=== PATIENT | male | born 1975 | race American Indian/Alaskan Native ===

== ENCOUNTER 2017-12-23 09:18 | Emergency (ER) | payer BC, MEDICAID | END 2017-12-23 10:14 | disposition left against medical advice (07) | LOC: DL.ED 09:18 | DX: Z53.21 Procedure and treatment not carried out due to patient leaving prior to being seen by health care provider (principal) | CPT/HCPCS: L3999 ==

== ENCOUNTER 2020-01-25 12:50 | Emergency (ER) | payer MEDICAID ==
[2020-01-25] MEDS ORDERED: Acetaminophen/HYDROcodone 325-10 MG Tab PO ONE (14:05)
--- NOTE | 2020-01-25 14:06 | EDM.PDOC ---
<Soledad Atkins - Last Filed: 01/25/20 13:54> ED HPI GENERAL MEDICAL PROBLEM - General Chief Complaint: Lower Extremity Injury/Pain Stated Complaint: FELL AND HURT ANKLE Time Seen by Provider: 01/25/20 13:35 Source of Information: Reports: Patient, RN Notes Reviewed History Limitations: Reports: No Limitations - History of Present Illness INITIAL COMMENTS - FREE TEXT/NARRATIVE: Patient presents to ED by private vehicle after tripping and twisting his right ankle. The patient reports 7/10 pain, anterior right ankle. The pain increases with palpation of medial and lateral malleoli, increases with dorsiflexion, plantarflexion, internal and external rotation. The patient denies pain to palpation of the base of the 5th metatarsal. He reports a history of multiple ankle sprains to bilateral ankles. History of a tibia fracture, date unknown. 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 [No Known Home Meds] 01/25/20 [History] Review of Systems - Review of Systems Review Of Systems: Comprehensive ROS is negative, except as noted in HPI. ED EXAM, GENERAL - Physical Exam Exam: See Below Exam Limited By: No Limitations General Appearance: Alert, No Apparent Distress Respiratory/Chest: No Respiratory Distress, Lungs Clear, Normal Breath Sounds, No Accessory Muscle Use, Chest Non-Tender Cardiovascular: Normal Peripheral Pulses, Regular Rate, Rhythm, No Edema, No Gallop, No JVD, No Murmur, No Rub Peripheral Pulses: 2+: Posterior Tibial (L), Posterior Tibial (R), Dorsalis Pedis (L), Dorsalis Pedis (R) Extremities: Normal Capillary Refill, Joint Swelling (right lateral ankle), Limited Range of Motion (secondary to pain, right ankel in all directions), Other (Negative Almeida test) Neurological: Normal Reflexes, No Motor/Sensory Deficits Psychiatric: Normal Affect, Normal Mood Skin Exam: Warm, Dry, Intact, Normal Color, No Rash Course - Vital Signs Last Recorded V/S: Last Vital Signs Temp 98.2 F 01/25/20 13:40 Pulse 69 01/25/20 13:40 Resp 19 01/25/20 13:40 BP 142/67 H 01/25/20 13:40 Pulse Ox 98 01/25/20 13:40 - Orders/Labs/Meds Orders: Active Orders 24 hr Category Date Time Status DME for Discharge [COMM] Routine Oth 01/25/20 14:05 Ordered Meds: Medications Discontinued Medications Generic Name Dose Route Start Last Admin Trade Name Jace PRN Reason Stop Dose Admin Hydrocodone Bitart/Acetaminophen 1 tab 01/25/20 14:05 [place] 325-10 Mg PO 01/25/20 14:06 ONETIME ONE - Radiology Interpretation Free Text/Narrative:: XR ankle right reveals no fractures. Posterior loose bodies present. Departure - Departure Time of Disposition: 14:22 Disposition: Home, Self-Care 01 Condition: Good Clinical Impression: Right ankle sprain Qualifiers: Encounter type: initial encounter Involved ligament of ankle: unspecified ligament Qualified Code(s): S93.401A - Sprain of unspecified ligament of right ankle, initial encounter - Discharge Information *PRESCRIPTION DRUG MONITORING PROGRAM REVIEWED*: Not Applicable *COPY OF PRESCRIPTION DRUG MONITORING REPORT IN PATIENT COLIN: Not Applicable Instructions: Ankle Sprain, [id number] Forms: ED Department Discharge Additional Instructions: Rest, ice, elevation. Walking boot as needed for pain. Ok to remove for bathing , while resting. Come out of this several times per day for gentle range of motion. Crutches as needed for pain. Follow-up in clinic with primary care provider if not improving as expected in 7-10 days. Over the counter tylenol, ibuprofen as needed for pain. Sepsis Event Note - Focused Exam Vital Signs: Vital Signs Temp Pulse Resp BP Pulse Ox 01/25/20 13:40 98.2 F 69 19 142/67 H 98 - My Orders Last 24 Hours: My Active Orders 01/25/20 14:05 DME for Discharge [COMM] Routine - Assessment/Plan Last 24 Hours: My Active Orders 01/25/20 14:05 DME for Discharge [COMM] Routine <Bradford Cutler - Last Filed: 01/25/20 14:27> Social & Family History - Family History Family Medical History: Noncontributory - Living Situation & Occupation Living situation: Reports: , with Family Course - Re-Assessments/Exams Free Text/Narrative Re-Assessment/Exam: 01/25/20 14:27 I personally performed or re-performed the physical examination and medical decision making. I have verified all student documentation or findings, including history, physical exam and/or medical decision making. Sepsis Event Note - Focused Exam Date Exam was Performed: 01/25/20 Time Exam was Performed: 14:27
--- NOTE | 2020-01-25 14:26 | CR ---
EXAMINATION: Ankle Min 3V Rt SEX: Male AGE: 44 years CLINICAL HISTORY: 44-year-old male injured when he twisted ankle on pebble. INTERPRETATION: 1. Pronounced soft tissue swelling over the lateral malleolus. 2. Dense reactive sclerosis and several small osseous fragments beneath the medial malleolus. 3. Tibiotalar mortise joints symmetrically intact. 4. No sign of acute right ankle fracture or dislocation. 5. Incidentally noted small heel spur at insertion Achilles tendon posteriorly on the os calcis. 6. No foreign bodies. CONCLUSION: Right ankle sprain.
== END 2020-01-25 14:34 | disposition home or self-care (01) ==
LOC: DL.ED 12:50
DX: S93.401A Sprain of unspecified ligament of right ankle, initial encounter (principal); Z88.0 Allergy status to penicillin; X50.1XXA Overexertion from prolonged static or awkward postures, initial encounter
CPT/HCPCS: 73610; 99283; A9270

== ENCOUNTER 2020-11-22 07:38 | Day surgery (SDC) | payer MEDICAID, OTHER ==
[~2020-11-22 07:38] MED LIST: Midazolam 1 MG/ML 2 ML SDV ONE; fentaNYL 100 MCG/2 ML SDV ONE
[2020-11-22] MEDS ORDERED: Midazolam 1 MG/ML 2 ML SDV IV ONE ×2 (07:39)
[2020-11-22] MEDS ORDERED: fentaNYL 100 MCG/2 ML SDV IV ONE ×2 (07:39)
[2020-11-22] MEDS: Dextrose 5%-0.45% NaCl 1,000 ML IV SCH (08:00)
[2020-11-22] MEDS: fentaNYL 100 MCG/2 ML SDV IV ONE ×2 (08:49→08:50)
[2020-11-22] MEDS: Midazolam 1 MG/ML 2 ML SDV IV ONE ×2 (08:50→08:51)
--- NOTE | 2020-11-22 10:19 | OR ---
DATE: 11/22/2020 PROCEDURES: Esophagogastroduodenoscopy and multiple pinch biopsies. INSTRUMENT USED: [id number]-HQ190 Olympus video panendoscope. PREMEDICATIONS: No oral or topical anesthesia used. Fentanyl 100 mcg intravenous, Versed 2 mg intravenous. The procedure was done under pulse oximetry, BP recording, and educational administration teacher. INDICATION: The patient with persistent dysphagia and regurgitation, unexplained and not responsive to medical measures. Esophagogastroduodenoscopy is performed for detection of any active erosive lesions, [place] esophagus and/or malignancy also under consideration, H pylori status to be determined, esophageal dilatations if indicated, endoscopic hemostasis therapy if needed. PROCEDURE IN DETAIL: The scope was passed with ease. Adequate visualization of the esophagus was made from proximal to distal areas. No upper esophageal lesions identified. No distal esophageal stricture. No uphill or downhill esophageal varices. No Nova-Ferrell tear. Grade D erosive changes were noted by [place] criteria. Z-line was seen at around 39 cm distal to the oral verge, some prominent benign-appearing folds were noted in the area of Z-line, multiple pinch biopsies were obtained and sent for histopathology. No proximal gastric varices noted. Gastric fundus examination by retroflexion showed no polypoid lesions. No gastric ulcer, malignant mass, or vascular ectasia identified. Duodenal bulb showed no ulcer. Visualized second part of the duodenum was unremarkable. Multiple pinch biopsies were taken from the gastric antrum and proximal body and sent for PyloriTek test for H pylori and histopathology. No bleeding was noted from any of the visualized areas at the completion of examination. Photographs were taken of the duodenal bulb, gastric antrum, fundus, and distal esophagus. IMPRESSION: Grade D gastroesophageal reflux disease. The patient tolerated the procedure well. [facility] /[id number]
--- NOTE | 2020-11-22 10:44 | LETTER ---
11/22/2020 RE: TYRESE ARELLANO : 1975 [address] NP [facility] [address] [place] [address] Dear Ms. Arteaga: Mr. Tyrese Arellano had esophagogastroduodenoscopy done this morning, and he tolerated the procedure well. I herewith send a copy of the endoscopy note and photographs for your review. Thank you, Sincerely, [facility] /[id number]
== END 2020-11-22 10:50 | disposition home or self-care (01) ==
LOC: DL.ENDO 07:38
PROVIDERS: ATTEND Internal Medicine Gastroenterology
DX: K22.10 Ulcer of esophagus without bleeding (principal); K21.9 Gastro-esophageal reflux disease without esophagitis; E66.09 Other obesity due to excess calories; F43.10 Post-traumatic stress disorder, unspecified; E78.5 Hyperlipidemia, unspecified; Z88.1 Allergy status to other antibiotic agents; Z98.890 Other specified postprocedural states; Z68.38 Body mass index [BMI] 38.0-38.9, adult
CPT/HCPCS: 43239; 87077; J2250; J3010; J7042

== ENCOUNTER 2020-11-29 06:57 | Day surgery (SDC) | payer MEDICAID, OTHER ==
[~2020-11-29 06:57] MED LIST changes: +Dextrose 5%-0.45% NaCl 1,000 ML IV SCH; +Sodium Chloride 0.9% 10 ML Syringe FLUSH PRN
[2020-11-29] MEDS ORDERED: fentaNYL 100 MCG/2 ML SDV IV ONE ×5 (06:58→09:08)
[2020-11-29] MEDS ORDERED: Midazolam 1 MG/ML 2 ML SDV IV ONE ×7 (06:58→09:06)
--- NOTE | 2020-11-29 11:44 | OR ---
DATE: 11/29/2020 PROCEDURE: Total colonoscopy and cold snare polypectomy. INSTRUMENT USED: [id number] Olympus video colonoscope. PREMEDICATIONS: Fentanyl 150 mcg intravenous, Versed 4 mg intravenous. The procedure was done under pulse oximetry, BP recording, and operations vocational instructor. INDICATION: The patient with high-risk family history for colon cancer. Screening colonoscopic examination is done for detection of any polypoid lesions and removal, endoscopic hemostasis therapy if needed. DESCRIPTION OF PROCEDURE: Initial rectal exam showed marked anal sphincter spasm and diffuse tenderness. Limited rigid anoscopy exam was unremarkable. Colonoscope was passed with ease to the ileocecal area. Photographs were taken of the normal-appearing cecum, identified by landmarks of the appendiceal orifice and double-bulged ileocecal folds. No bleeding was noted from any of the visualized areas at the commencement of the examination. The bowel preparation was found to be adequate. Stigler scale 3 in all the regions, total score of 9. No stricture, no vascular ectasia, no large isolated ulcerations seen. No evidence of diffuse inflammatory bowel disease in the form of friability, contact bleeding, or ulcerations. Probing the proximal sides of folds and flexures using adequate distention and clearing up the stool material, withdrawal of the scope was made, cecum to rectum time over 6 minutes. In the proximal sigmoid colon, 3 mm sized benign-appearing polyp was noted, NBI views were obtained, photographs were taken, cold snare polypectomy was done. The tissue was retrieved and sent for histopathology. No bleeding was noted from any of the visualized areas at the completion of examination. IMPRESSION: Diminutive sigmoid polyps. The patient tolerated the procedure well. [facility] /[id number]
--- NOTE | 2020-11-29 12:33 | LETTER ---
11/29/2020 RE: DIANARYLEE : 1975 Sarah Arteaga NP [facility] [address] [place] [address]. Dear Ms. Arteaga, . Rylee Arellano had colonoscopic examination this morning and he tolerated the procedure well. I herewith send a copy of the endoscopy note and photographs for your review. Sincerely. [facility] /[id number]
== END 2020-11-29 11:15 | disposition home or self-care (01) ==
LOC: DL.ENDO 06:57
PROVIDERS: ATTEND Internal Medicine Gastroenterology
DX: Z12.11 Encounter for screening for malignant neoplasm of colon (principal); K63.5 Polyp of colon; E66.09 Other obesity due to excess calories; F43.10 Post-traumatic stress disorder, unspecified; E78.5 Hyperlipidemia, unspecified; Z80.0 Family history of malignant neoplasm of digestive organs; Z88.1 Allergy status to other antibiotic agents; Z98.890 Other specified postprocedural states; Z68.38 Body mass index [BMI] 38.0-38.9, adult
CPT/HCPCS: J2250; J3010; J7042

== ENCOUNTER 2022-01-22 06:25 | Day surgery (SDC) | payer MEDICAID, OTHER ==
[~2022-01-22 06:25] MED LIST changes: +Sodium Chloride 0.9% 10 ML Syringe FLUSH SCH
[2022-01-22] MEDS ORDERED: Midazolam 1 MG/ML 2 ML SDV IV ONE ×4 (06:26→07:50)
[2022-01-22] MEDS ORDERED: fentaNYL 100 MCG/2 ML SDV IV ONE ×3 (06:26→07:46)
[2022-01-22] MEDS ORDERED: Midazolam 1 MG/ML 2 ML SDV ONE (08:19)
== END 2022-01-22 09:50 | disposition home or self-care (01) ==
LOC: DL.ENDO 06:25
PROVIDERS: ATTEND Internal Medicine Gastroenterology
DX: Z09 Encounter for follow-up examination after completed treatment for conditions other than malignant neoplasm (principal); K22.89 Other specified disease of esophagus; E11.9 Type 2 diabetes mellitus without complications; K21.9 Gastro-esophageal reflux disease without esophagitis; Z01.812 Encounter for preprocedural laboratory examination; Z20.822 Contact with and (suspected) exposure to COVID-19; Z87.19 Personal history of other diseases of the digestive system; Z79.82 Long term (current) use of aspirin
CPT/HCPCS: 43235; 87635; J2250; J3010; J7042; U0002

== ENCOUNTER 2025-04-15 05:29 | Day surgery (SDC) | payer OTHER ==
[2025-04-15] MEDS ORDERED: Propofol 200 MG/20 ML SDV IV ONE (05:30)
[2025-04-15] MEDS ORDERED: Lidocaine 2% 20 ML MDV NERVRT ONE (05:30)
[2025-04-15] MEDS ORDERED: Propofol 1,000 MG/100 ML SDV IV ONE (05:30)
[2025-04-15] MEDS ORDERED: Lactated Ringers 1,000 ML IV ONE (05:30)
[2025-04-15] MEDS ORDERED: Lidocaine 2% 20 ML MDV ONE (05:31)
[2025-04-15] MEDS ORDERED: Propofol 200 MG/20 ML SDV ONE (05:31)
[2025-04-15] MEDS: Lactated Ringers 1,000 ML IV SCH (06:11)
[2025-04-15] MEDS ORDERED: propofoL 1,000 MG/100 ML 100 ML ONE (06:32)
== END 2025-04-15 07:50 | disposition home or self-care (01) ==
LOC: DL.ENDO 05:29
PROVIDERS: ATTEND Internal Medicine Gastroenterology
DX: K57.30 Diverticulosis of large intestine without perforation or abscess without bleeding (principal); K64.8 Other hemorrhoids
CPT/HCPCS: 45378; J2003; J2704; J7120; 00811